=== PATIENT | male | born 1995 | race Caucasian/White ===

== ENCOUNTER 2018-06-23 02:06 | Emergency (ER) | payer OTHER ==
[2018-06-23 05:25] LABS: ABSOLUTE LYMPHOCYTES (AUTO) 1.4 10^3/uL (0.5-4.7); ABSOLUTE MONOCYTES (AUTO) 0.2 10^3/uL (0.1-1.4); ABSOLUTE NEUT (AUTO) 4.2 10^3/uL (1.7-8.2); BASOPHILS % (AUTO) 0.7 % (0-2); EOSINOPHILS % (AUTO) 0.4 % (0-6); HEMATOCRIT 43.1 % (37.9-51.0); HEMOGLOBIN 15.3 g/dL (13.5-17.0); LYMPHOCYTES % (AUTO) 24.1 % (13-45); MEAN CORPUSCULAR HEMOGLOBIN 32.1 pg (27.0-33.4); MEAN CORPUSCULAR HGB CONC 35.5 g/dL (32.0-36.0); MEAN CORPUSCULAR VOLUME 91 fl (80-97); MONOCYTES % (AUTO) 3.7 % (3-13); PLATELET COUNT 228 10^3/uL (150-450); RED BLOOD COUNT 4.76 10^6/uL (4.35-5.55); RED CELL DISTRIBUTION WIDTH 13.3 % (11.5-14.0); SEGMENTED NEUTROPHILS % (AUTO) 71.1 % (42-78); TOTAL CELLS COUNTED % (AUTO) 100 %; WHITE BLOOD COUNT 5.9 10^3/uL (4.0-10.5)
[2018-06-23 05:33] LABS: ALANINE AMINOTRANSFERASE 24 U/L (21-72); ALBUMIN 4.8 g/dL (3.5-5.0); ALKALINE PHOSPHATASE 56 U/L (38-126); ASPARTATE AMINO TRANSFERASE 21 U/L (17-59); BILIRUBIN,DIRECT 0.3 mg/dL (0.0-0.4); BILIRUBIN,TOTAL 0.7 mg/dL (0.2-1.3); BLOOD UREA NITROGEN 10 mg/dL (7-20); CALCIUM 9.4 mg/dL (8.4-10.2); CHLORIDE 110 mmol/L (98-107); GLUCOSE 93 mg/dL (75-110); LIPASE 35.1 U/L (23-300); POTASSIUM 4.4 mmol/L (3.6-5.0); TOTAL PROTEIN 7.6 g/dL (6.3-8.2)
[2018-06-23] MEDS ORDERED: MORPHINE SULFATE 10 MG/ML INJ IV ONE (05:36)
[2018-06-23] MEDS ORDERED: ONDANSETRON HCL INJ/PF 4 MG/2 ML SDV IV ONE (05:36)
[2018-06-23] MEDS ORDERED: NORMAL SALINE 1000 ML 1,000 ML IV ONE ×2 (05:36→07:27)
[2018-06-23 05:38] LABS: ANION GAP 17 (5-19); CARBON DIOXIDE 21 mmol/L (22-30); SODIUM 148.3 mmol/L (137-145)
[2018-06-23 06:13] LABS: APPEARANCE,URINE CLEAR; BILIRUBIN,URINE NEGATIVE (NEGATIVE); COLOR,URINE STRAW; GLUCOSE, URINE NEGATIVE (NEGATIVE); KETONES,URINE NEGATIVE (NEGATIVE); LEUKOCYTE ESTERASE,URINE NEGATIVE (NEGATIVE); NITRITE,URINE NEGATIVE (NEGATIVE); PROTEIN,URINE NEGATIVE (NEGATIVE); URINE SPECIFIC GRAVITY 1.002; UROBILINOGEN,URINE NEGATIVE mg/dL (<2.0)
--- NOTE | 2018-06-23 07:43 | ER Document Report ---
ED General - General Mode of Arrival: Ambulatory Information source: Patient TRAVEL OUTSIDE OF THE [place] IN LAST 30 DAYS: No <MARICRUZ BOSE - Last Filed: 06/23/18 08:05> <ADOLFO HARVEY - Last Filed: 06/23/18 09:04> - General Chief Complaint: Abdominal Pain Stated Complaint: ABDOMINAL PAIN Time Seen by Provider: 06/23/18 04:15 Notes: Patient is a 23-year-old male who presents with chief complaint of abdominal pain. Patient reports the pain is located in his mid to upper abdomen, feels like sharp stabbing pain. Patient reports associated nausea, diarrhea and vomiting. (MARICRUZ BOSE) - Related Data Allergies/Adverse Reactions: No Known Allergies Allergy (Unverified 08/08/15 08:20) Past Medical History - General Information source: Patient - Social History Smoking Status: Current Every Day Smoker Frequency of alcohol use: Heavy Drug Abuse: Marijuana Family History: Reviewed & Not Pertinent Patient has suicidal ideation: No Patient has homicidal ideation: No Renal/ Medical History: Denies: Hx Peritoneal Dialysis GI Medical History: Reports: Hx Colonoscopy, Hx Endoscopy Surgical Hx: Negative - Immunizations Hx Diphtheria, Pertussis, Tetanus Vaccination: Yes <MARICRUZ BOSE - Last Filed: 06/23/18 08:05> - Social History Smoking Status: Current Every Day Smoker Smoking Education Provided: Yes <ADOLFO HARVEY - Last Filed: 06/23/18 09:04> Review of Systems - Review of Systems Constitutional: No symptoms reported EENT: No symptoms reported Cardiovascular: No symptoms reported Respiratory: No symptoms reported Gastrointestinal: See HPI Genitourinary: No symptoms reported Male Genitourinary: No symptoms reported Musculoskeletal: No symptoms reported Skin: No symptoms reported Hematologic/Lymphatic: No symptoms reported Neurological/Psychological: No symptoms reported <MARICRUZ BOSE - Last Filed: 06/23/18 08:05> Physical Exam <MARICRUZ BOSE - Last Filed: 06/23/18 08:05> <ADOLFO HARVEY - Last Filed: 06/23/18 09:04> - Vital signs Vitals: Temp Pulse Resp BP Pulse Ox 98.0 F 95 18 104/63 97 06/23/18 02:14 06/23/18 02:14 06/23/18 02:14 06/23/18 02:14 06/23/18 02:14 - Notes Notes: PHYSICAL EXAMINATION: GENERAL: Well-appearing, well-nourished and in no acute distress. HEAD: Atraumatic, normocephalic. EYES: Pupils equal round and reactive to light, extraocular movements intact, sclera anicteric, conjunctiva are normal. ENT: Nares patent, oropharynx clear without exudates. Moist mucous membranes. NECK: Normal range of motion, supple without lymphadenopathy LUNGS: Breath sounds clear to auscultation bilaterally and equal. No wheezes rales or rhonchi. HEART: Regular rate and rhythm without murmurs ABDOMEN: Soft, I did a few hours ago was on Shay nondistended abdomen. Tenderness to palpation to upper abdomen. No guarding, no rebound. No masses appreciated. Musculoskeletal: Normal range of motion, no pitting or edema. No cyanosis. NEUROLOGICAL: Cranial nerves grossly intact. Normal speech, normal gait. Normal sensory, motor exams PSYCH: Normal mood, normal affect. SKIN: Warm, Dry, normal turgor, no rashes or lesions noted. (MARICRUZ BOSE) Course - Laboratory Result Diagrams: 06/23/18 03:43 06/23/18 03:43 <MARICRUZ BOSE - Last Filed: 06/23/18 08:05> - Laboratory Result Diagrams: 06/23/18 03:43 06/23/18 03:43 <ADOLFO HARVEY - Last Filed: 06/23/18 09:04> - Re-evaluation Re-evalutation: CBC, comprehensive metabolic panel, lipase and urinalysis are all unremarkable. Patient still reports pain to the mid to upper abdomen. Patient will be handed off to [facility] Jose Luis for additional IV fluids and pain medications. Bedside report was given and patient agrees with current plan of care. (MARICRUZ BOSE) 06/23/18 09:00 Patient reports that abdominal pain has resolved after drinking the GI cocktail. Patient reports feeling much improved. Abdomen soft, no guarding. Patient presents with abdominal pain without signs of peritonitis or other life- threatening or serious etiology. Patient appears stable for discharge and has been instructed to return immediately if the symptoms worsen in any way, or in 8 -12 hours if not improved for reevaluation. The patient has been instructed to return if the symptoms worsen or change in any way. (ADOLFO HARVEY) - Vital Signs Vital signs: Temp Pulse Resp BP Pulse Ox 98.0 F 95 18 104/63 97 06/23/18 02:14 06/23/18 02:14 06/23/18 02:14 06/23/18 02:14 06/23/18 02:14 - Laboratory Laboratory results interpreted by me: 06/23/18 03:43 Sodium 148.3 H Chloride 110 H Carbon Dioxide 21 L 06/23/18 09:01 Labs- Entire Visit 06/23/18 06/23/18 06/23/18 03:43 03:43 03:43 WBC 5.9 RBC 4.76 Hgb 15.3 Hct 43.1 MCV 91 MCH 32.1 MCHC 35.5 RDW 13.3 Plt Count 228 Seg Neutrophils % 71.1 Lymphocytes % 24.1 Monocytes % 3.7 Eosinophils % 0.4 Basophils % 0.7 Absolute Neutrophils 4.2 Absolute Lymphocytes 1.4 Absolute Monocytes 0.2 Absolute Eosinophils 0.0 Absolute Basophils 0.0 Sodium 148.3 H Potassium 4.4 Chloride 110 H Carbon Dioxide 21 L Anion Gap 17 BUN 10 Creatinine 0.99 Est GFR ( Amer) > 60 Est GFR (Non-Af Amer) > 60 Glucose 93 Calcium 9.4 Total Bilirubin 0.7 Direct Bilirubin 0.3 Neonat Total Bilirubin Not Reportable Neonat Direct Bilirubin Not Reportable Neonat Indirect Bili Not Reportable AST 21 ALT 24 Alkaline Phosphatase 56 Creatine Kinase Total Protein 7.6 Albumin 4.8 Lipase 35.1 Urine Color STRAW Urine Appearance CLEAR Urine pH 5.0 Ur Specific [place] 1.002 Urine Protein NEGATIVE Urine Glucose (UA) NEGATIVE Urine Ketones NEGATIVE Urine Blood NEGATIVE Urine Nitrite NEGATIVE Urine Bilirubin NEGATIVE Urine Urobilinogen NEGATIVE Ur Leukocyte Esterase NEGATIVE Urine WBC (Auto) 0 Urine Mucus (Auto) RARE Urine Ascorbic Acid NEGATIVE 06/23/18 03:43 WBC RBC Hgb Hct MCV MCH MCHC RDW Plt Count Seg Neutrophils % Lymphocytes % Monocytes % Eosinophils % Basophils % Absolute Neutrophils Absolute Lymphocytes Absolute Monocytes Absolute Eosinophils Absolute Basophils Sodium Potassium Chloride Carbon Dioxide Anion Gap BUN Creatinine Est GFR ( Amer) Est GFR (Non-Af Amer) Glucose Calcium Total Bilirubin Direct Bilirubin Neonat Total Bilirubin Neonat Direct Bilirubin Neonat Indirect Bili AST ALT Alkaline Phosphatase Creatine Kinase 130 Total Protein Albumin Lipase Urine Color Urine Appearance Urine pH Ur Specific [place] Urine Protein Urine Glucose (UA) Urine Ketones Urine Blood Urine Nitrite Urine Bilirubin Urine Urobilinogen Ur Leukocyte Esterase Urine WBC (Auto) Urine Mucus (Auto) Urine Ascorbic Acid (JOSE LUIS,ADOLFO) Discharge <MARICRUZ BOSE - Last Filed: 06/23/18 08:05> <ADOLFO HARVEY - Last Filed: 06/23/18 09:04> - Discharge Clinical Impression: Nausea vomiting and diarrhea, Epigastric abdominal pain Condition: Stable Disposition: HOME, SELF-CARE Instructions: Gastritis ([facility]) Additional Instructions: Return immediately for any new or worsening symptoms Followup with your primary care provider, call tomorrow to make a followup appointment VOMITING: Vomiting (or nausea without vomiting) can be caused by many other different problems. It can mean that something's wrong with the stomach, such as ulcers or inflammation or the intestinal tract, such as appendicitis. But it can also be a symptom of a problem that has nothing to do with the stomach or intestines. Vomiting is common with severe headaches, earaches, tonsillitis, and kidney infections, etc. We see it with pneumonia or heart attacks. Drugs can cause nausea and vomiting. Many abdominal problems cause vomiting; for example, gallstones, kidney stones, pancreatitis, and intestinal obstruction ( blocked bowels). In most cases, curing the vomiting depends on fixing the problem that caused it. For temporary relief, we may use an anti-nausea medicine. For home use, we can prescribe suppositories, chewable pills, pills that dissolve in the mouth, or liquid anti-nausea drugs. If the vomiting seems to be caused by a problem in the stomach, acid-suppressing drugs may be prescribed as well. It's important to avoid dehydration. Sip small amounts of clear liquids ( soft drinks, tea, broth, etc) . Try to take fluids frequently even if you are vomiting to prevent dehydration. Take increasing amounts of fluid and when liquids are being consumed successfully, advance to small amounts of bland food (toast, soups, mashed potatoes, etc.) until you are able to resume a regular diet. Avoid aspirin, tobacco, and alcohol. If the vomiting worsens, if the problem that's making you vomit worsens, or if there's evidence of bleeding in the stomach (such as black, tarry stool, or bloody or black vomit), you should return immediately. Also, return if abdominal pain worsens or becomes localized to one area or you develop high fever. Call your doctor if you aren't improved in 24 hours. DIARRHEA, NON-SPECIFIC: Diarrhea means frequent, watery stools. There are many causes. Any problem that keeps the intestinal tract from absorbing water from the stool can lead to diarrhea. A sudden new diarrhea problem is usually caused by a virus, food sensitivity, toxic bacteria, or drugs. In this case, we expect the problem to go away soon. Testing is done only if you seem seriously ill from the diarrhea. If you have chronic diarrhea, or diarrhea that keeps coming back, we need to find out why. Chronic diarrhea can be due to inflammation of the bowels such as Crohn's disease or ulcerative colitis, food sensitivity such as intolerance to lactose or wheat protein, irritable bowel syndrome, and other problems. If your diarrhea is a significant problem but it's not clear why you have it, we' ll refer you to a specialist for further testing. During an episode of diarrhea, drink small amounts (two to six ounces) of clear liquids (soft drinks, sport drinks, herb teas, broth, etc). Take fluids frequently to prevent dehydration. It's usually not a problem to take mild anti- diarrhea medication such as Kaopectate or Pepto-Bismol. As the diarrhea eases, advance to small amounts of bland food (mashed potato, toast) for 24 hours. Call the physician if blood appears in your vomit or stool, if vomiting lasts longer than 24 hours, if the abdominal pain worsens or becomes localized to one area, if you develop high fever, or if you become lightheaded and weak. VIRAL SYNDROME: The physician has diagnosed a viral infection. Viruses not only cause "colds," but can cause many different symptoms including generalized aching, fever, headache, cough, diarrhea, nausea, vomiting, and fatigue. The treatment, for the most part, is simply relief of symptoms. This means that antibiotics are usually not given. Rest, fluids, pain medications and, occasionally, medication for the specific symptoms that are most bothersome will be prescribed. Use good handwashing to avoid passing the virus to others. Shared toys should be cleaned with disinfectant. Clean the toilets, sinks, and counter surfaces in bathrooms. Launder clothing in hot water. Contact the physician if you develop any new or unusual symptoms such as severe headache, stiff neck, high fever, chest pain, productive cough, or shortness of breath. You should be rechecked if you don't see marked improvement within seven to 10 days. INTRAVENOUS (I V) FLUIDS: As part of your care today, you received intravenous (IV) fluids. IV fluids are administered to patients who are dehydrated or to those who have certain chemical (electrolyte) abnormalities that need correcting. ANTINAUSEA MEDICATION: You have been given a medication to suppress nausea and vomiting. This type of medication can be given as a shot, pill, or suppository. It will usually last for many hours. Pills and shots usually last six to eight hours. For the typical illness, only one or two doses of the medication may be necessary. Mild lightheadedness may occur. This type of medicine can cause drowsiness. Do not drive or operate dangerous machinery while under its influence. Do not mix with alcohol. See your doctor at once if you have muscle spasms or tightness, or uncontrollable motions (particularly of the neck, mouth, or jaw). Persistent vomiting or severe lightheadedness should also be evaluated by the physician. FOLLOW-UP CARE: If you have been referred to a physician for follow-up care, call the physician s office for an appointment as you were instructed or within the next two days. If you experience worsening or a significant change in your symptoms, notify the physician immediately or return to the Emergency Department at any time for re-evaluation. Prescriptions: Omeprazole Magnesium [Prilosec Otc] 20 mg PO DAILY #15 tablet. Promethazine HCl [Phenergan 25 mg Tablet] 25 mg PO Q6H PRN #12 tablet PRN Reason: Sucralfate [Carafate 1 gm Tablet] 1 gm PO ACHS #40 tablet Forms: Smoking Cessation Education, Return to Work Referrals: [facility] [Provider Group] - Follow up as needed
[2018-06-23] MEDS ORDERED: MAG HYDROX/AL HYDROX/SIMETH SUSP 30 ML UDCUP PO ONE (08:34)
[2018-06-23] MEDS ORDERED: LIDOCAINE 2% VISCOUS SOLN 20 ML UDCUP PO ONE (08:34)
[2018-06-23 09:32] VITALS: BP 96/60
== END 2018-06-23 09:32 | disposition home or self-care (01) ==
LOC: ER 02:06
DX: R10.13 Epigastric pain (principal); R11.2 Nausea with vomiting, unspecified; R19.7 Diarrhea, unspecified; F17.200 Nicotine dependence, unspecified, uncomplicated; F12.10 Cannabis abuse, uncomplicated
CPT/HCPCS: 99284; 96361; 96374; 96375; 36415; 82550; 83690; 85025; 80053; 81001; J3490; J2270; J2405; J7030

== ENCOUNTER 2018-10-13 01:43 | Emergency (ER) | payer OTHER ==
[2018-10-13] MEDS ORDERED: LIDOCAINE 1%/EPINEPHRINE INJ 20 ML VIAL INJ ONE (02:26)
[2018-10-13] MEDS ORDERED: DIPH/PERTUSS(ACELL)/TETANUS VAC/PF 0.5 ML SYR (>=10YO) IM ONE (02:26)
[2018-10-13] MEDS ORDERED: LIDOCAINE 1%/EPINEPHRINE INJ 20 ML VIAL ONE (02:26)
--- NOTE | 2018-10-13 02:32 | ER Document Report ---
ED General - General Chief Complaint: Arm Injury Stated Complaint: ARM INJURY Time Seen by Provider: 10/13/18 02:11 Notes: Patient is a 23-year-old male without chronic medical problems who presents with a 7 cm laceration to his left mid forearm that he sustained his arm a laceration after accidentally grazing his arm a cross a piece of sheet metal just prior to arrival. He complains of a severe, throbbing, aching pain to the area. Nothing improves or worsens the pain. No history of similar injuries in the past. He is right-hand dominant. He denies any additional injuries today. His tetanus is not currently up-to-date. Denies any focal weakness or numbness. No pallor or discoloration of his hand. TRAVEL OUTSIDE OF THE [place] IN LAST 30 DAYS: No - Related Data Allergies/Adverse Reactions: No Known Allergies Allergy (Unverified 08/08/15 08:20) Past Medical History - General Information source: Patient - Social History Smoking Status: Never Smoker Frequency of alcohol use: None Drug Abuse: None Lives with: Spouse/Significant other Family History: Reviewed & Not Pertinent Patient has suicidal ideation: No Patient has homicidal ideation: No Renal/ Medical History: Denies: Hx Peritoneal Dialysis GI Medical History: Reports: Hx Colonoscopy, Hx Endoscopy - Immunizations Hx Diphtheria, Pertussis, Tetanus Vaccination: Yes Review of Systems - Review of Systems Notes: Constitutional: Negative for fever. Eyes: Negative for visual changes. ENT: Negative for facial injury Cardiovascular: Negative for chest injury. Respiratory: Negative for shortness of breath. Gastrointestinal: Negative for abdominal injury. Genitourinary: Negative for genital injury Musculoskeletal: Negative for back injury. Skin: Positive for laceration/abrasions. Neurological: Negative for head injury. Physical Exam - Vital signs Vitals: Temp Pulse Resp BP Pulse Ox 98.3 F 102 H 18 127/68 H 97 10/13/18 01:49 10/13/18 01:49 10/13/18 01:49 10/13/18 01:49 10/13/18 01:49 Interpretation: Tachycardic - Resolved at the time of my assessment Notes: PHYSICAL EXAMINATION: GENERAL: Appears to be moderately uncomfortable but in no acute distress HEAD: Atraumatic, normocephalic. EYES: sclera anicteric, conjunctiva are normal. ENT: Moist mucous membranes. NECK: Normal range of motion LUNGS: Normal work of breathing HEART: 2+ radial pulses bilaterally EXTREMITIES: no pitting or edema. No cyanosis. NEUROLOGICAL: No focal neurological deficits. Moves all extremities spontaneously and on command. RMU motor and sensory distribution is normal including against resistance on motor testing PSYCH: Normal mood, normal affect. SKIN: Warm, Dry, normal turgor, there is a 7 cm laceration to the left mid forearm with exposure of the subcutaneous fat Course - Re-evaluation Re-evalutation: 10/13/18 02:35 Presentation of uncomplicated 7 cm laceration to the left mid forearm without any evidence of neurovascular injury or retained foreign body on exam. The wound was cleaned, irrigated and closed with a running stitch. Patient tolerated the procedure well. Tetanus has been updated. At this time will discharge with return precautions and follow-up recommendations. Verbal discharge instructions given a the bedside and opportunity for questions given. Medication warnings reviewed. Patient is in agreement with this plan and has verbalized understanding of return precautions and the need for primary care follow-up in the next 1 week. - Vital Signs Vital signs: Temp Pulse Resp BP Pulse Ox 98.3 F 102 H 18 127/68 H 97 10/13/18 01:49 10/13/18 01:49 10/13/18 01:49 10/13/18 01:49 10/13/18 01:49 Procedures - Laceration/Wound Repair Left Arm Wound length (cm): 7 Wound's Depth, Shape: Superficial Laceration pre-procedure: Sterile PPE donned Anesthetic type: 1% Lidocaine w/epi Volume Anesthetic (mLs): 5 Wound explored: Clean Irrigated w/ Saline (mLs): 500 Wound Debrided: Minimal Wound Repaired With: Sutures Suture Size/Type: 4:0, Prolene Number of Sutures: 7 Layer Closure?: No Post-procedure wound care: Sterile dressing applied Post-procedure NV exam normal: Yes Complications: Yes Notes: 10/13/18 03:27 The patient did develop a brisk venous bleed from the lateral aspect of the wound during repair after infiltration with lidocaine and epinephrine. This was addressed by instillation of TXA and direct pressure to the area. This did not immediately resolve the bleeding and the suture repair was completed without further comp location. No formation of hematoma thereafter. Discharge - Discharge Clinical Impression: Laceration of left upper arm Qualifiers: Encounter type: initial encounter Qualified Code(s): S41.112A - Laceration without foreign body of left upper arm, initial encounter Condition: Good Disposition: HOME, SELF-CARE Additional Instructions: Please return to your primary doctor, the ED, or an urgent care in 7 days for suture removal. Return immediately if you develop spreading redness around the wound, pus from the wound, worsening pain, or a fever of >100.4. Keep the area clean and dry. Wash gently with soap and water twice daily and cover with antibiotic ointment. Referrals: [facility] [Primary Care Provider] - Follow up as needed
[2018-10-13] MEDS ORDERED: TRANEXAMIC ACID INJ/PF 1,000 MG/10 ML SDV IV ONE ×2 (02:48→02:49)
[2018-10-13 03:29] VITALS: BP 122/62
== END 2018-10-13 03:20 | disposition home or self-care (01) ==
LOC: ER 01:43
DX: S51.812A Laceration without foreign body of left forearm, initial encounter (principal); W26.8XXA Contact with other sharp object(s), not elsewhere classified, initial encounter; Y93.89 Activity, other specified; Z23 Encounter for immunization
CPT/HCPCS: 12002; 99283; 90471; 96374; 90715; J3490

== ENCOUNTER 2018-10-28 15:08 | Emergency (ER) | payer OTHER ==
[2018-10-28 15:56] VITALS: BP 135/59
--- NOTE | 2018-10-28 16:49 | ER Document Report ---
HPI - HPI Patient complains to provider of: Suture removal Time Seen by Provider: 10/28/18 16:45 Onset/Duration: Better Quality of pain: No pain Pain Level: Denies Context: Patient had sutures placed 15 days ago to left forearm. Patient denies any problems with the injury. Patient states his tetanus was updated. Associated Symptoms: Other - Sutured laceration to left forearm Exacerbated by: Denies Relieved by: Denies Similar symptoms previously: No Recently seen / treated by doctor: Yes - ROS ROS below otherwise negative: Yes Systems Reviewed and Negative: Yes All other systems reviewed and negative - CONSTITUTIONAL Constitutional: DENIES: Fever, Chills - NEURO Neurology: DENIES: Weakness - GASTROINTESTINAL Gastrointestinal: DENIES: Nausea - DERM Skin Color: Normal Skin Problems: Laceration Past Medical History - General Information source: Patient - Social History Smoking Status: Former Smoker Frequency of alcohol use: Rare Drug Abuse: None Family History: Reviewed & Not Pertinent Patient has suicidal ideation: No Patient has homicidal ideation: No - Medical History Medical History: Negative Renal/ Medical History: Denies: Hx Peritoneal Dialysis GI Medical History: Reports: Hx Colonoscopy, Hx Endoscopy Past Surgical History: Reports: Other - Bleb to lung - Immunizations Hx Diphtheria, Pertussis, Tetanus Vaccination: Yes Vertical Provider Document - CONSTITUTIONAL Agree With Documented VS: Yes Exam Limitations: No Limitations General Appearance: WD/WN, No Apparent Distress - INFECTION CONTROL TRAVEL OUTSIDE OF THE [place] IN LAST 30 DAYS: No - HEENT HEENT: Atraumatic, Normocephalic - NECK Neck: Normal Inspection - RESPIRATORY Respiratory: No Respiratory Distress - CARDIOVASCULAR Pulses: Normal: Radial - BACK Back: Normal Inspection - MUSCULOSKELETAL/EXTREMETIES Musculoskeletal/Extremeties: PAOLA COONEY - NEURO Level of Consciousness: Awake, Alert, Appropriate Motor/Sensory: No Motor Deficit - DERM Integumentary: Warm, Dry, Laceration - Sutured 7 cm laceration to the volar aspect of left forearm with 7 intact sutures, wound edges approximated, no erythema, no drainage. Course - Vital Signs Vital signs: Temp Pulse Resp BP Pulse Ox 98.4 F 84 16 135/59 H 99 10/28/18 15:44 10/28/18 15:44 10/28/18 15:44 10/28/18 15:44 10/28/18 15:44 Discharge - Discharge Clinical Impression: Visit for suture removal Condition: Stable Disposition: HOME, SELF-CARE Instructions: Suture Removal Additional Instructions: Return immediately for any new or worsening symptoms Followup with your primary care provider as needed Referrals: [facility] [Primary Care Provider] - Follow up as needed
== END 2018-10-28 16:48 | disposition home or self-care (01) ==
LOC: ER 15:08
DX: S51.812D Laceration without foreign body of left forearm, subsequent encounter (principal); T14.8XXD Other injury of unspecified body region, subsequent encounter

== ENCOUNTER 2019-06-28 18:22 | Emergency (ER) | payer OTHER, BC ==
[2019-06-28] MEDS ORDERED: ONDANSETRON 4 MG TAB.RAPDIS PO ONE (19:41)
--- NOTE | 2019-06-28 19:42 | ER Document Report ---
Addendum entered and electronically signed by ADOLFO HARVEY NP 06/28/19 20:08: Course - Re-evaluation Re-evalutation: 06/28/19 20:[address] Colvin to review patient's imaging while we wait for radiologist report, no obvious pneumothorax at this time. - Vital Signs Vital signs: Temp Pulse Resp BP Pulse Ox 98.2 F 58 L 16 117/60 98 06/28/19 18:33 06/28/19 18:33 06/28/19 18:33 06/28/19 18:33 06/28/19 18:33 Original Note: ED Medical Screen (RME) - General Chief Complaint: Shortness Of Breath Stated Complaint: CHEST PAIN Time Seen by Provider: 06/28/19 19:40 Primary Care Provider: [facility] [Primary Care Provider] - Follow up as needed Information source: Patient Notes: Patient presents complaining of left-sided chest pain that radiates through to his back that started suddenly at 430 this afternoon while he was driving. Patient complains of chest pain difficulty breathing nausea and dizziness. Patient has a history of spontaneous pneumothorax on this left side and is concerned about this today. I have greeted and performed a rapid initial assessment of this patient. A comprehensive ED assessment and evaluation of the patient, analysis of test results and completion of the medical decision making process will be conducted by additional ED providers. TRAVEL OUTSIDE OF THE [place] IN LAST 30 DAYS: No - Related Data Allergies/Adverse Reactions: No Known Allergies Allergy (Verified 06/28/19 18:25) Past Medical History Renal/ Medical History: Denies: Hx Peritoneal Dialysis GI Medical History: Reports: Hx Colonoscopy, Hx Endoscopy Past Surgical History: Reports: Other - Bleb to lung - Immunizations Hx Diphtheria, Pertussis, Tetanus Vaccination: Yes Physical Exam - Vital signs Vitals: Temp Pulse Resp BP Pulse Ox 98.2 F 58 L 16 117/60 98 06/28/19 18:33 06/28/19 18:33 06/28/19 18:33 06/28/19 18:33 06/28/19 18:33 - General General appearance: Alert, Anxious - Respiratory Respiratory status: No respiratory distress Chest status: Pain with deep breathing Breath sounds: Normal. No: Decreased air movement Course - Vital Signs Vital signs: Temp Pulse Resp BP Pulse Ox 98.2 F 58 L 16 117/60 98 06/28/19 18:33 06/28/19 18:33 06/28/19 18:33 06/28/19 18:33 06/28/19 18:33 Doctor's Discharge - Discharge Referrals: [facility] [Primary Care [facility]] - Follow up as needed
--- NOTE | 2019-06-28 20:31 | RADIOLOGY REPORT (SQ) ---
EXAM DESCRIPTION: CLINICAL HISTORY: 24 years Male, L side cp, hx spontaneous pneumothorax COMPARISON: Chest x-ray 08/22/2015. FINDINGS: Cardiomediastinal silhouette is normal. Mild hyperinflation. Minimal scarring left lung apex medially. No acute lung pleural abnormalities. IMPRESSION: Hyperinflation without acute findings.
[2019-06-28 20:36] LABS: ABSOLUTE EOSINOPHILS # (AUTO) 0.1 10^3/uL (0.0-0.6); ABSOLUTE LYMPHOCYTES (AUTO) 2.2 10^3/uL (0.5-4.7); ABSOLUTE MONOCYTES (AUTO) 0.4 10^3/uL (0.1-1.4); BASOPHILS % (AUTO) 0.5 % (0-2); EOSINOPHILS % (AUTO) 1.1 % (0-6); HEMATOCRIT 44.3 % (37.9-51.0); HEMOGLOBIN 15.5 g/dL (13.5-17.0); LYMPHOCYTES % (AUTO) 28.8 % (13-45); MEAN CORPUSCULAR HEMOGLOBIN 31.3 pg (27.0-33.4); MEAN CORPUSCULAR HGB CONC 34.9 g/dL (32.0-36.0); MEAN CORPUSCULAR VOLUME 90 fl (80-97); MONOCYTES % (AUTO) 5.6 % (3-13); PLATELET COUNT 199 10^3/uL (150-450); RED BLOOD COUNT 4.94 10^6/uL (4.35-5.55); RED CELL DISTRIBUTION WIDTH 13.2 % (11.5-14.0); TOTAL CELLS COUNTED % (AUTO) 100 %; WHITE BLOOD COUNT 7.8 10^3/uL (4.0-10.5)
[2019-06-28 20:55] LABS: ALBUMIN 4.9 g/dL (3.5-5.0); ALKALINE PHOSPHATASE 50 U/L (38-126); ANION GAP 11 (5-19); ASPARTATE AMINO TRANSFERASE 23 U/L (17-59); BILIRUBIN,DIRECT 0.2 mg/dL (0.0-0.4); BLOOD UREA NITROGEN 14 mg/dL (7-20); CALCIUM 9.8 mg/dL (8.4-10.2); CARBON DIOXIDE 27 mmol/L (22-30); CHLORIDE 102 mmol/L (98-107); GLUCOSE 94 mg/dL (75-110); POTASSIUM 3.7 mmol/L (3.6-5.0); TOTAL PROTEIN 7.6 g/dL (6.3-8.2)
[2019-06-29] MEDS ORDERED: FENTANYL CITRATE INJ/PF 100 MCG/2 ML AMPUL IV ONE (00:51)
--- NOTE | 2019-06-29 00:53 | ER Document Report ---
ED General - General Chief Complaint: Shortness Of Breath Stated Complaint: CHEST PAIN Time Seen by Provider: 06/28/19 19:40 Primary Care Provider: ANILA COCHRAN MD [ACTIVE STAFF] - Follow up as needed ROBINSON WALKER MD [ACTIVE STAFF] - Follow up as needed [facility] [NO LOCAL MD] - Follow up in 1 week Mode of Arrival: Ambulatory Information source: Patient Notes: This 24-year-old male presents emergency department with complaints of sudden onset left side chest pain. Patient reports he was driving when he started having the chest pain. Reports it radiates up to his left shoulder. Reports history of spontaneous pneumothorax. Reports it hurts when he coughs or takes a deep breath. Reports his chest wall is slightly tender to palpate. No complaints of nausea vomiting diarrhea. Denies trauma. Denies recent heavy lifting. Reports he does lift items at work but nothing unusual. 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 He has been up in the ceiling recently which caused him to cough for the last couple days. TRAVEL OUTSIDE OF THE [place] IN LAST 30 DAYS: No - HPI Onset/Duration: Sudden Quality of pain: Sharp Severity: Severe Pain Level: 5 Associated symptoms: None Exacerbated by: Coughing, Deep breathing Relieved by: Denies Similar symptoms previously: Yes Recently seen / treated by doctor: No - Related Data Allergies/Adverse Reactions: No Known Allergies Allergy (Verified 06/28/19 18:25) Past Medical History - General Information source: Patient - Social History Smoking Status: Former Smoker Chew tobacco use (# tins/day): No Frequency of alcohol use: Rare Drug Abuse: Marijuana Occupation: fixes restaurant equipment Lives with: Family Family History: Reviewed & Not Pertinent Patient has suicidal ideation: No Patient has homicidal ideation: No Pulmonary Medical History: Reports: Other - pneumothorax Renal/ Medical History: Denies: Hx Peritoneal Dialysis GI Medical History: Reports: Hx Colonoscopy, Hx Endoscopy Past Surgical History: Reports: Other - Bleb to lung - Immunizations Hx Diphtheria, Pertussis, Tetanus Vaccination: Yes Review of Systems - Review of Systems Notes: Review HPI for review of systems., All other systems negative Physical Exam - Vital signs Vitals: Temp Pulse Resp BP Pulse Ox 98.2 F 58 L 16 117/60 98 06/28/19 18:33 06/28/19 18:33 06/28/19 18:33 06/28/19 18:33 06/28/19 18:33 - General General appearance: Alert, Anxious In distress: None - HEENT Head: Normocephalic, Atraumatic Eyes: Normal Conjunctiva: Normal Pharynx: Normal Neck: Normal, Supple. No: Lymphadenopathy - Respiratory Respiratory status: No respiratory distress Chest status: Tender Breath sounds: Normal Chest palpation: Normal. No: Flail segment - Cardiovascular Rhythm: Regular, Bradycardia Heart sounds: Normal auscultation Murmur: No - Abdominal Inspection: Normal Distension: No distension Bowel sounds: Normal Tenderness: Nontender Organomegaly: No organomegaly - Back Back: Normal, Nontender - Extremities General upper extremity: Normal ROM General lower extremity: Normal ROM, Normal weight bearing - Neurological Neuro grossly intact: Yes Cognition: Normal Orientation: AAOx4 Deena Coma Scale Eye Opening: Spontaneous [place] Coma Scale Verbal: Oriented Deena Coma Scale Motor: Obeys Commands [place] Coma Scale Total: 15 Speech: Normal Sensory: Normal - Psychological Associated symptoms: Normal affect, Normal mood - Skin Skin Temperature: Warm Skin Moisture: Dry Skin Color: Normal Course - Re-evaluation Re-evalutation: 06/29/19 02:11 24-year-old male presents the emergency department with complaints of left-sided chest pain. Reports history of spontaneous pneumothorax. Denies trauma. Denies recent cold symptoms denies coughing fever vomiting diarrhea. 06/29/19 02:12 Patient reports pain has decreased. Labs unremarkable. Presentation of chest pain in an otherwise well-appearing patient. Low clinical suspicion for ACS given the clinical history, exam, EKG without ST elevation or depressions, and negative troponin x 2. Heart score less than or equal to 3. PE also seems unlikely given the clinical history, absence of tachycardia or dyspnea. Patient's PERC criteria is negative. Chest x-ray & CT chest without evidence of pneumothorax or pneumonia. No widened mediastinum. Inferior diss ection also seems unlikely given history, symmetric pulses, chest x-ray and vitals. Given the reassuring evaluation, will plan for discharge home at this time with return precautions and follow-up recommendations. Patient has been instructed to return if symptoms worsen or change in any way. CT of the chest shows bronchiectasis emphysema. I consulted Dr Mota who advised steroids, torodol. Patient Instructed on ct results and plan of care. Patient reports he has been coughing for the last couple days because he works fixing restaurant equipment and he was recently up in a ceiling. Patient reports he does smoke marijuana. He was advised to quit smoking. He was advised to follow-up with the spray drier usual chest pain return precautions reviewed. Patient verbalized understanding. Dictation of this chart was performed using voice recognition software; therefore, there may be some unintended grammatical errors. Chest X-Ray 06/28/19 19:40 IMPRESSION: Hyperinflation without acute findings. Chest CT 06/29/19 00:51 IMPRESSION: Mild emphysema. Mild left basilar bronchiectasis. TECHNICAL DOCUMENTATION: Quality ID # 436: Final reports with documentation of one or more dose reduction techniques (e.g., Automated exposure control, adjustment of the mA and/or kV according to patient size, use of iterative reconstruction technique) copyright 2011 [employer]- All Rights Reserved 06/28/19 20:24 06/28/19 20:24 MCV 90 fl (80-97) 06/28/19 20:24 MCH 31.3 pg (27.0-33.4) 06/28/19 20:24 MCHC 34.9 g/dL (32.0-36.0) 06/28/19 20:24 RDW 13.2 % (11.5-14.0) 06/28/19 20:24 Seg Neutrophils % 64.0 % (42-78) 06/28/19 20:24 Lymphocytes % 28.8 % (13-45) 06/28/19 20:24 Monocytes % 5.6 % (3-13) 06/28/19 20:24 Eosinophils % 1.1 % (0-6) 06/28/19 20:24 Basophils % 0.5 % (0-2) 06/28/19 20:24 Absolute Neutrophils 5.0 10^3/uL (1.7-8.2) 06/28/19 20:24 Absolute Lymphocytes 2.2 10^3/uL (0.5-4.7) 06/28/19 20:24 Absolute Monocytes 0.4 10^3/uL (0.1-1.4) 06/28/19 20:24 Absolute Eosinophils 0.1 10^3/uL (0.0-0.6) 06/28/19 20:24 Absolute Basophils 0.0 10^3/uL (0.0-0.2) 06/28/19 20:24 Chloride 102 mmol/L (98-107) 06/28/19 20:24 Carbon Dioxide 27 mmol/L (22-30) 06/28/19 20:24 Anion Gap 11 (5-19) 06/28/19 20:24 Est GFR ( Amer) > 60 (>60) 06/28/19 20:24 Est GFR (Non-Af Amer) > 60 (>60) 06/28/19 20:24 Glucose 94 mg/dL (75-110) 06/28/19 20:24 Calcium 9.8 mg/dL (8.4-10.2) 06/28/19 20:24 Total Bilirubin 1.0 mg/dL (0.2-1.3) 06/28/19 20:24 AST 23 U/L (17-59) 06/28/19 20:24 Alkaline Phosphatase 50 U/L (38-126) 06/28/19 20:24 Total Protein 7.6 g/dL (6.3-8.2) 06/28/19 20:24 Albumin 4.9 g/dL (3.5-5.0) 06/28/19 20:24 06/28/19 06/29/19 20:24 01:10 Troponin I < 0.012 < 0.012 - Vital Signs Vital signs: Temp Pulse Resp BP Pulse Ox 97.7 F 44 L 13 137/84 H 94 06/29/19 00:24 06/29/19 00:24 06/29/19 03:01 06/29/19 03:01 06/29/19 03:01 - Laboratory Result Diagrams: 06/28/19 20:24 06/28/19 20:24 - Diagnostic Test Radiology reviewed: Image reviewed, Reports reviewed - EKG Interpretation by Me EKG shows normal: Sinus rhythm Rate: Normal Rhythm: NSR Additional EKG results interpreted by me: 06/29/19 08:[address] elevation no T wave inversion Discharge - Discharge Clinical Impression: Chest pain Qualifiers: Chest pain type: unspecified Qualified Code(s): R07.9 - Chest pain, unspecified Bronchiectasis Qualifiers: Bronchiectasis type: uncomplicated Qualified Code(s): J47.9 - Bronchiectasis, uncomplicated Emphysema of lung Qualifiers: Emphysema type: unspecified Qualified Code(s): J43.9 - Emphysema, unspecified Condition: Stable Disposition: HOME, SELF-CARE Instructions: Chest Pain of Unclear Cause ([facility]), Steroid Medication Injection, Toradol Injection ([facility]) Additional Instructions: *You have been evaluated for chest pain, bronchiectasis, emphysema *Take motrin as indicated, cough and deep breathe frequently *Quit smoking *Follow up with a primary care provider within one week for referral to a spray drier *Follow-up with the spray drier for evaluation *Return to ED for worsening condition, changes, needs *Return to ED if not better in 24 hours Forms: Return to Work Referrals: [facility] [NO [facility]AL MD] - Follow up in 1 week ANILA COCHRAN MD [ACTIVE STAFF] - Follow up as needed ROBINSON WALKER MD [ACTIVE STAFF] - Follow up as needed
--- NOTE | 2019-06-29 02:12 | RADIOLOGY REPORT (SQ) ---
EXAM DESCRIPTION: CT CHEST WITH IV CONTRAST COMPLETED DATE/TME: 06/29/2019 00:51 CLINICAL HISTORY: 24 years, Male, CHEST PAIN COMPARISON: CT chest 08/22/2015 TECHNIQUE: Axial images of the chest were performed utilizing intravenous contrast, with sagittal and coronal reformatted images. Images stored on PACS. All CT scanners at this facility use dose modulation, iterative reconstruction, and/or weight based dosing when appropriate to reduce radiation dose to as low as reasonably achievable (ALARA). [facility]: Dose Right [facility]: CareDose [facility]: Dose Right [facility]: Teradose 4D [facility]: Smart [place] LIMITATIONS: None. FINDINGS: There is mild emphysema. There is mild bronchiectasis at the left lung base, a finding that was also on the prior scan. No evidence of acute pulmonary infiltrate or pleural effusion. No evidence of pulmonary embolus. No evidence of aortic dissection. No evidence of mediastinal or hilar adenopathy. The heart is normal in size. IMPRESSION: Mild emphysema. Mild left basilar bronchiectasis. TECHNICAL DOCUMENTATION: Quality ID # 436: Final reports with documentation of one or more dose reduction techniques (e.g., Automated exposure control, adjustment of the mA and/or kV according to patient size, use of iterative reconstruction technique) copyright 2010 [employer]- All Rights Reserved
[2019-06-29] MEDS ORDERED: METHYLPREDNISOLONE INJ 125 MG/2 ML SDV IV ONE (02:33)
[2019-06-29] MEDS ORDERED: KETOROLAC TROMETHAMINE INJ/PF 30 MG/1 ML SDV IV ONE (02:33)
[2019-06-29 03:02] VITALS: BP 137/84
--- NOTE | 2019-06-29 10:30 | EKG REPORT ---
SEVERITY:- OTHERWISE NORMAL ECG - SINUS RHYTHM ATRIAL PREMATURE COMPLEX : Confirmed by: Tiffanie Weems 29-Jun-2019 10:29:10
== END 2019-06-29 03:10 | disposition home or self-care (01) ==
LOC: ER 18:22
DX: J47.9 Bronchiectasis, uncomplicated (principal); J43.9 Emphysema, unspecified; R07.9 Chest pain, unspecified; R06.02 Shortness of breath
CPT/HCPCS: 93005; 99284; 96374; 96375; 36415; 85025; 80053; 84484; 71046; 71260; 93010; S0119; J3010; J2930; J1885

== ENCOUNTER 2020-05-21 10:32 | Emergency (ER) | payer OTHER, BC ==
[2020-05-21] MEDS ORDERED: FENTANYL CITRATE INJ/PF 100 MCG/2 ML AMPUL IV ONE (11:01)
--- NOTE | 2020-05-21 11:01 | ER Document Report ---
ED General - General Chief Complaint: Chest Pain Stated Complaint: CHEST PAIN Time Seen by Provider: 05/21/20 10:47 Primary Care Provider: CAYETANO SENIOR PA-C [Primary Care Provider] - Follow up as needed Notes: 24-year-old male with a history of spontaneous pneumothorax chest tube and VATS, former smoker current marijuana smoker presents with left-sided axillary chest pain pleuritic rating the back worse today but started yesterday with mild shortness of breath or shortness breath today. No fever no cough beyond normal. Pain is in the axilla region. Denies leg swelling hemoptysis. TRAVEL OUTSIDE OF THE [place] IN LAST 30 DAYS: No - Related Data Allergies/Adverse Reactions: No Known Allergies Allergy (Verified 05/21/20 10:46) Past Medical History - General Information source: Patient - Social History Smoking Status: Former Smoker Chew tobacco use (# tins/day): No Frequency of alcohol use: None Drug Abuse: None Family History: Reviewed & Not Pertinent Patient has homicidal ideation: No - Past Medical History Cardiac Medical History: Denies: Hx Coronary Artery Disease, Hx Heart Attack, Hx Hypertension Pulmonary Medical History: Denies: Hx Asthma, Hx Bronchitis, Hx COPD, Hx Pneumonia Neurological Medical History: Denies: Hx Cerebrovascular Accident, Hx Seizures Renal/ Medical History: Denies: Hx Peritoneal Dialysis GI Medical History: Reports: Hx Colonoscopy, Hx Endoscopy Musculoskeletal Medical History: Reports Hx Arthritis - HIPS Past Surgical History: Reports: Other - Bleb to lung - Immunizations Hx Diphtheria, Pertussis, Tetanus Vaccination: Yes Review of Systems - Review of Systems Notes: REVIEW OF SYSTEMS GEN: Denies fever, chills, weight loss ENT: Denies sore throat, nasal discharge, ear pain EYES: Denies blurry vision, eye pain, discharge CV: Chest pain RESP: Shortness of breath GI: Denies abdominal pain, nausea, vomiting, diarrhea MSK: Denies joint pain/swelling, edema, SKIN: Denies rash, skin lesions LYMPH: Denies swollen glands/lymph nodes NEURO: Denies headache, focal weakness or numbness, dizziness PSYCH: Denies depression, suicidal or homicidal ideation PHYSICAL EXAMINATION General: No acute distress, well-nourished Head: Atraumatic, normocephalic ENT: Mouth normal, oropharynx moist, no exudates or tonsillar enlargement Eyes: Conjunctiva normal, pupils equal, lids normal Neck: No JVD, supple, no guarding CVS: Normal rate, regular rhythm, no murmurs Resp: No resp distress, equal and normal breath sounds bilaterally GI: Nondistended, soft, no tenderness to palpation, no rebound or guarding Ext: No deformities, no edema, normal range of motion in upper and lower ext Back: No CVA or midline TTP Skin: No rash, warm Lymphatic: No lymphadeopathy noted Neuro: Awake, alert. Face symmetric. GCS 15. Physical Exam - Vital signs Vitals: Temp Pulse Resp BP Pulse Ox 98.5 F 50 L 18 119/56 L 99 05/21/20 10:46 05/21/20 10:46 05/21/20 10:46 05/21/20 10:46 05/21/20 10:46 Course - Re-evaluation Re-evalutation: 05/21/20 11:40 Axillary chest pain shortness of breath normal vital signs history of pneumoth orax and resultant VATS Sat normal lung sounds good EKG shows premature atrial contraction, this could be causing some discomfort. Also smokes marijuana but has no wheezing or significant lung disease on his chest x-ray. Labs normal Trope negative doubt ACS doubt dissection, doubt PE, PERC negative Patient is stable for discharge will follow up with primary care. I have discussed with the patient there likely diagnosis, aftercare plan, follow-up plans and my usual and customary return precautions. They verbalized understanding of this. - Vital Signs Vital signs: Temp Pulse Resp BP Pulse Ox 98.5 F 50 L 18 119/56 L 99 05/21/20 10:47 05/21/20 10:46 05/21/20 10:46 05/21/20 10:46 05/21/20 10:46 - Laboratory Result Diagrams: 05/21/20 10:58 05/21/20 10:58 - Diagnostic Test Radiology reviewed: Image reviewed, Reports reviewed - EKG Interpretation by Me EKG shows normal: Sinus rhythm Rate: Normal Rhythm: NSR - Premature atrial contractions conducted normally no true PVC and no ST or T wave changes When compared to previous EKG there are: Previous EKG unavailable Discharge - Discharge Clinical Impression: Premature atrial contraction, Chest wall pain Condition: Good Disposition: HOME, SELF-CARE Instructions: Anti-Inflammatory Medication ([facility]), Chest Wall Pain ([facility]) Additional Instructions: Do not find a serious cause of your symptoms. There is no collapsed lung no heart problems. Please stop smoking all substances. Please follow-up with your primary care. Referrals: CAYETANO SENIOR PA-C [Primary Care Provider] - Follow up as needed
[2020-05-21 11:17] LABS: ABSOLUTE EOSINOPHILS # (AUTO) 0.1 10^3/uL (0.0-0.6); ABSOLUTE LYMPHOCYTES (AUTO) 1.4 10^3/uL (0.5-4.7); ABSOLUTE MONOCYTES (AUTO) 0.3 10^3/uL (0.1-1.4); ABSOLUTE NEUT (AUTO) 2.8 10^3/uL (1.7-8.2); EOSINOPHILS % (AUTO) 2.3 % (0-6); HEMATOCRIT 42.3 % (37.9-51.0); HEMOGLOBIN 14.9 g/dL (13.5-17.0); LYMPHOCYTES % (AUTO) 30.6 % (13-45); MEAN CORPUSCULAR HEMOGLOBIN 31.6 pg (27.0-33.4); MEAN CORPUSCULAR HGB CONC 35.2 g/dL (32.0-36.0); MEAN CORPUSCULAR VOLUME 90 fl (80-97); MONOCYTES % (AUTO) 7.2 % (3-13); PLATELET COUNT 184 10^3/uL (150-450); RED BLOOD COUNT 4.71 10^6/uL (4.35-5.55); RED CELL DISTRIBUTION WIDTH 12.9 % (11.5-14.0); SEGMENTED NEUTROPHILS % (AUTO) 58.9 % (42-78); TOTAL CELLS COUNTED % (AUTO) 100 %; WHITE BLOOD COUNT 4.7 10^3/uL (4.0-10.5)
[2020-05-21 11:43] LABS: ANION GAP 6 (5-19); BLOOD UREA NITROGEN 15 mg/dL (7-20); CALCIUM 9.7 mg/dL (8.4-10.2); CARBON DIOXIDE 26 mmol/L (22-30); CHLORIDE 106 mmol/L (98-107); GLUCOSE 93 mg/dL (75-110); POTASSIUM 4.2 mmol/L (3.6-5.0)
--- NOTE | 2020-05-21 11:45 | RADIOLOGY REPORT (SQ) ---
EXAM DESCRIPTION: CHEST SINGLE VIEW IMAGES COMPLETED DATE/TIME: 05/21/2020 11:30 am REASON FOR STUDY: cp h/o PTX COMPARISON: Two-view chest 06/28/2019, 08/22/2015 EXAM PARAMETERS: NUMBER OF VIEWS: One view. TECHNIQUE: Single frontal radiographic view of the chest acquired. RADIATION DOSE: NA LIMITATIONS: None. FINDINGS: LUNGS AND PLEURA: No opacities, masses or pneumothorax. No pleural effusion. MEDIASTINUM AND HILAR STRUCTURES: No masses. Contour normal. HEART AND VASCULAR STRUCTURES: Heart normal in size. Normal vasculature. BONES: No acute findings. HARDWARE: None in the chest. OTHER: No other significant finding. IMPRESSION: NO ACUTE RADIOGRAPHIC FINDING IN THE CHEST. TECHNICAL DOCUMENTATION: JOB ID: [id number] 2010 [employer]- All Rights Reserved Reading location - IP/workstation name: [id number]
[2020-05-21 12:45] VITALS: BP 112/78
--- NOTE | 2020-05-21 13:13 | EKG REPORT ---
SEVERITY:- ABNORMAL ECG - SINUS RHYTHM : Confirmed by: Chato Booker MD 21-May-2020 13:12:29
== END 2020-05-21 12:58 | disposition home or self-care (01) ==
LOC: ER 10:32
DX: R07.81 Pleurodynia (principal); R07.89 Other chest pain; F12.10 Cannabis abuse, uncomplicated; Z87.891 Personal history of nicotine dependence
CPT/HCPCS: 93005; 99285; 36415; 85025; 80048; 84484; 71045; 93010; J3010

== ENCOUNTER 2020-08-18 12:17 | Emergency (ER) | payer BC, OTHER ==
[2020-08-18 12:50] VITALS: BP 107/63
[2020-08-18] MEDS ORDERED: SILVER SULFADIAZINE 1% CREAM 400 GM TP ONE (13:08)
[2020-08-18] MEDS ORDERED: HYDROCODONE/ACETAMINOPHEN 5-325 MG (6 TAB/ER DISP) PO PRN (13:11)
--- NOTE | 2020-08-18 13:14 | ER Document Report ---
HPI - HPI Time Seen by Provider: 08/18/20 13:03 Notes: 25-year-old male presents emergency room today for evaluation of his left volar aspect of his third finger that he accidentally touched to a acetylene and oxygen torch while at work approximately an hour ago. 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 Denies any other area of injury. States his tetanus was given approximately 3 years ago. Soaked affected finger in cold water immediately. Burn is only to the volar aspect of the left third phalanges. Reports pain is 3 out of 5, is not tried any [id number] pain medication. Able to bend his fingers without any issues. Denies fevers, chills, chest pain,palpitations, shortness of breath, dyspnea, nausea, vomiting, diarrhea, abdominal pain, hematuria,blurred vision, double vision, loss of vision, speech changes, LH, dizziness, syncope, headaches, wheezing, ST, URI, neck pain, weakness, bowel or bladder dysfunction, saddle anesthesia, numbness or tingling in bilateral upper or lower extremities equally, muscle paralysis, weakness in bilateral upper or lower extremities equally or rash. MEDICATIONS: I agree with the patient medications as charted by the RN. ALLERGIES: I agree with the allergies as charted by the RN. PAST MEDICAL HISTORY/PAST SURGICAL HISTORY: Reviewed and agree as charted by RN. SOCIAL HISTORY: Reviewed and agree as charted by RN. FAMILY HISTORY: No significant familial comorbid conditions directly related to patient complaint EXAM: Reviewed vital signs as charted by RN. REVIEW OF SYSTEMS:reviewed vital signs by RN CONSTITUTIONAL : Denies fever, chills, or sweats. Denies recent illness. EENT: Denies eye, ear, throat, or mouth pain or symptoms. Denies nasal or sinus congestion or discharge. Denies throat, tongue, or mouth swelling or difficulty swallowing. CARDIOVASCULAR: Denies chest pain. Denies palpitations or racing or irregular heart beat. Denies ankle edema. RESPIRATORY: Denies cough, cold, or chest congestion. Denies shortness of breath, difficulty breathing, or wheezing. GASTROINTESTINAL: Denies abdominal pain or distention. Denies nausea, vomiting, or diarrhea. Denies blood in vomitus, stools, or per rectum. Denies black, tarry stools. Denies constipation. GENITOURINARY: Denies difficulty urinating, painful urination, burning, frequency, blood in urine, or discharge. MUSCULOSKELETAL: Denies back or neck pain or stiffness. Denies joint pain or swelling. SKIN: reports left 3rd finger burn. Denies rash, lesions or sores. HEMATOLOGIC : Denies easy bruising or bleeding. LYMPHATIC: Denies swollen, enlarged glands. NEUROLOGICAL: Denies confusion or altered mental status. Denies passing out or loss of consciousness. Denies dizziness or lightheadedness. Denies headache. Denies weakness or paralysis or loss of use of either side. Denies problems wit h gait or speech. Denies sensory loss, numbness, or tingling. Denies seizures. PSYCHIATRIC: Denies anxiety or stress. Denies depression, suicidal ideation, or homicidal ideation. ALL OTHER SYSTEMS REVIEWED AND NEGATIVE. Dictation was performed using [employer] voice recognition software PHYSICAL EXAMINATION: GENERAL: Well-appearing, well-nourished and in no acute distress. HEAD: Atraumatic, normocephalic. EYES: Pupils equal round and reactive to light, extraocular movements intact, sclera anicteric, conjunctiva are normal. ENT: Nares patent, oropharynx clear without exudates. Moist mucous membranes. NECK: Normal range of motion, supple without lymphadenopathy LUNGS: Breath sounds clear to auscultation bilaterally and equal. No wheezes rales or rhonchi. HEART: Regular rate and rhythm without murmurs ABDOMEN: Soft, nontender, nondistended abdomen. No guarding, no rebound. No masses appreciated. Musculoskeletal: Normal range of motion, no pitting or edema. No cyanosis. NEUROLOGICAL: Cranial nerves grossly intact. Normal speech, normal gait. Normal sensory, motor exams PSYCH: Normal mood, normal affect. SKIN: Warm, Dry, normal turgor, no rashes or lesions noted. Pain to left 3rd phalange on volar aspect distal to MCJ to distal aspect just before the PIP, approx 2.5cm long. Burn is noncircumferential only on the volar aspect no pain to wrist with flexion, extension, inversion, eversion of wrist. digits in right and left with full aprom. Press Technician + 2 BUE equally. Snuffbox tenderness negative bilaterally. radial pulses + 2 BUE equally. Negative kanavels sign. No open wounds or drainage from wrist. No vascular compromise.No body crepitus or focal area of TTP. no pain with opposition, flexion, extension, abduction and adduction on __. Motor and sensory function of ulnar, radial, medial nerves intact bilaterally and equally. strength 5/5 in BUE equally. - REPRODUCTIVE Reproductive: DENIES: : Past Medical History - General Information source: Patient - Social History Smoking Status: Unknown if Ever Smoked Family History: Reviewed & Not Pertinent - Past Medical History Cardiac Medical History: Denies: Hx Coronary Artery Disease, Hx Heart Attack, Hx Hypertension Pulmonary Medical History: Denies: Hx Asthma, Hx Bronchitis, Hx COPD, Hx Pneumonia Neurological Medical History: Denies: Hx Cerebrovascular Accident, Hx Seizures Renal/ Medical History: Denies: Hx Peritoneal Dialysis GI Medical History: Reports: Hx Colonoscopy, Hx Endoscopy Musculoskeletal Medical History: Reports Hx Arthritis - HIPS Past Surgical History: Reports: Other - Bleb to lung - Immunizations Hx Diphtheria, Pertussis, Tetanus Vaccination: Yes Vertical Provider Document - CONSTITUTIONAL Agree With Documented VS: Yes Exam Limitations: No Limitations General Appearance: WD/WN - INFECTION CONTROL TRAVEL OUTSIDE OF THE [place] IN LAST 30 DAYS: No Course - Re-evaluation Re-evalutation: 08/18/20 13:25 Afebrile vital stable no distress. Nurses notes reviewed. Patient has a volar second-degree burn to his left third finger that is noncircumferential, head and neck surgeon are equal, patient has a below that opened, we did clean thoroughly, apply Shivani vadene and dress the wound. Patient has already been established with the burn center from previous olivas at [facility]. Patient states he will follow-up with his primary care provider tomorrow. Will prophylactically give patient Keflex 500 mg twice a day. Discussed with him that it is very important that he does follow-up with his primary care tomorrow for reevaluation. Patient did receive a tetanus 3 years ago. After performing a Medical Screening Examination, I estimate there is LOW risk for OPEN FRACTURE, COMPARTMENT SYNDROME, TENDON RUPTURE, ACUTE NEUROVASCULAR INJURY, or RETAINED FOREIGN BODY, thus I consider the discharge disposition reasonable. Also, there is no evidence or peritonitis, sepsis, or toxicity. I have reevaluated this patient multiple times and no significant life threatening changes are noted. The patient and I have discussed the diagnosis and risks, and we agree with discharging home with close follow-up with the understanding that symptoms and presentations can change. We also discussed returning to the Emergency Department immediately if new or worsening symptoms occur. We have discussed the symptoms which are most concerning (e.g., changing or worsening pain, fever, numbness, weakness, cool or painful digits) that necessitate immediate return. - Vital Signs Vital signs: Temp Pulse Resp BP Pulse Ox 98.4 F 72 16 107/63 100 08/18/20 12:49 08/18/20 12:49 08/18/20 12:49 08/18/20 12:49 08/18/20 12:49 Discharge - Discharge Clinical Impression: left 3rd finger partial thickness burn Condition: Stable Disposition: HOME, SELF-CARE Additional Instructions: Olivas The seriousness of a burn is not always obvious at first. Delayed tissue damage and secondary infection may occur despite proper treatment. Proper care is very important. A burn that is third-degree may need skin grafting. Most olivas, however, are simply protected with dressings until healed. Keep the burn clean. If the dressing gets wet, remove it and blot the wound dry, then apply a fresh dressing. Dressings should be changed at least once daily. Soaks to remove crusting are usually started in about two days. Olivas in certain areas require stretching to prevent disabling tightness. Your doctor will advise you about this. For pain control, you may frequently apply a hand towel that has been dipped in water with ice cubes. Do not apply ice directly to the burned areas. If any signs of infection occur (swelling, redness, increasing tenderness, red streaks, tender lumps in the armpit or groin above the burn, or fever), contact the doctor immediately. Apply a thick amount of cream to affected area twice a day for today, you do need to see your primary care tomorrow for reevaluation. Your tetanus is up-to-date so we did not need to update it today. Advised to start on prophylactic Keflex twice a day for 5 days. Wash with soap and water. If you have any worsening symptoms or increased pain please return to the emergency room immediately. Return immediately for any new or worsening symptoms. Follow up with primary care provider, call tomorrow to make followup appointment within the next 24 hours. BURN CENTER: [facility] [address] [place] [address] [id number] [place] [address] [place] Prescriptions: Cephalexin [Cephalexin 500 MG Tablet] 500 mg PO BID #10 tablet Referrals: CAYETANO SENIOR PA-C [Primary Care Provider] - Follow up tomorrow
== END 2020-08-18 13:27 | disposition home or self-care (01) ==
LOC: ER 12:17
DX: T23.222A Burn of second degree of single left finger (nail) except thumb, initial encounter (principal); X19.XXXA Contact with other heat and hot substances, initial encounter; Y99.0 Civilian activity done for income or pay
CPT/HCPCS: 99283; J3490

== ENCOUNTER 2020-09-15 07:34 | Emergency (ER) | payer OTHER, BC ==
--- NOTE | 2020-09-15 08:13 | RADIOLOGY REPORT (SQ) ---
EXAM DESCRIPTION: CHEST 2 VIEWS IMAGES COMPLETED DATE/TIME: 09/15/2020 8:02 am REASON FOR STUDY: chest pain COMPARISON: 05/21/2020 EXAM PARAMETERS: NUMBER OF VIEWS: two views TECHNIQUE: Digital Frontal and Lateral radiographic views of the chest acquired. RADIATION DOSE: NA LIMITATIONS: none FINDINGS: LUNGS AND PLEURA: No opacities, masses or pneumothorax. No pleural effusion. MEDIASTINUM AND HILAR STRUCTURES: No masses or contour abnormalities. HEART AND VASCULAR STRUCTURES: Heart normal size. No evidence for failure. BONES: No acute findings. HARDWARE: None in the chest. OTHER: No other significant finding. IMPRESSION: NO ACUTE RADIOGRAPHIC FINDING IN THE CHEST. TECHNICAL DOCUMENTATION: JOB ID: [id number] 2010 [employer]- All Rights Reserved Reading location - IP/workstation name: [email or web address]
[2020-09-15 08:22] LABS: ABSOLUTE EOSINOPHILS # (AUTO) 0.1 10^3/uL (0.0-0.6); ABSOLUTE LYMPHOCYTES (AUTO) 2.7 10^3/uL (0.5-4.7); ABSOLUTE MONOCYTES (AUTO) 0.4 10^3/uL (0.1-1.4); TOTAL CELLS COUNTED % (AUTO) 100 %
[2020-09-15 08:26] LABS: ABSOLUTE NEUT (AUTO) 2.1 10^3/uL (1.7-8.2); BASOPHILS % (AUTO) 0.6 % (0-2); EOSINOPHILS % (AUTO) 2.4 % (0-6); HEMATOCRIT 48.9 % (37.9-51.0); HEMOGLOBIN 17.6 g/dL (13.5-17.0); LYMPHOCYTES % (AUTO) 50.5 % (13-45); MEAN CORPUSCULAR HEMOGLOBIN 31.8 pg (27.0-33.4); MEAN CORPUSCULAR VOLUME 88 fl (80-97); MONOCYTES % (AUTO) 7.9 % (3-13); PLATELET COUNT 214 10^3/uL (150-450); RED BLOOD COUNT 5.54 10^6/uL (4.35-5.55); RED CELL DISTRIBUTION WIDTH 13.6 % (11.5-14.0); SEGMENTED NEUTROPHILS % (AUTO) 38.6 % (42-78); WHITE BLOOD COUNT 5.4 10^3/uL (4.0-10.5)
[2020-09-15 08:36] LABS: ALBUMIN 5.4 g/dL (3.5-5.0); ALKALINE PHOSPHATASE 70 U/L (38-126); ANION GAP 13 (5-19); ASPARTATE AMINO TRANSFERASE 35 U/L (17-59); BILIRUBIN,DIRECT 0.2 mg/dL (0.0-0.4); BILIRUBIN,TOTAL 1.2 mg/dL (0.2-1.3); BLOOD UREA NITROGEN 16 mg/dL (7-20); CALCIUM 10.6 mg/dL (8.4-10.2); CARBON DIOXIDE 26 mmol/L (22-30); CHLORIDE 102 mmol/L (98-107); CREATINE KINASE 76 U/L (55-170); GLUCOSE 106 mg/dL (75-110); POTASSIUM 4.5 mmol/L (3.6-5.0); TOTAL PROTEIN 8.8 g/dL (6.3-8.2)
[2020-09-15 08:47] LABS: CREATINE KINASE MB 0.63 ng/mL (<4.55)
[2020-09-15 08:52] LABS: TROPONIN I < 0.012 ng/mL
[2020-09-15] MEDS ORDERED: KETOROLAC TROMETHAMINE 60 MG/2 ML SDV IM ONE (10:31)
--- NOTE | 2020-09-15 10:38 | ER Document Report ---
ED General - General Chief Complaint: Chest Wall Pain Stated Complaint: CHEST PAIN Time Seen by Provider: 09/15/20 09:40 Primary Care Provider: CAYETANO SENIOR PA-C [Primary Care Provider] - Follow up as needed TRAVEL OUTSIDE OF THE [place] IN LAST 30 DAYS: No - HPI Notes: Chief complaint: Side chest pain History of present illness: 25-year-old male with previous history of spontaneous pneumothorax with chest tube placement and VATS procedure has been seen here several times subsequently for chest wall pain. Back with similar symptoms today. He reports that he had "a little cough" with no production of sputum last week. This is getting better. He thought he probably had a mild cold. No fever. No hemoptysis. He now reports an intermittent sharp catch in the left side of his chest aggravated by coughing or taking a deep breath. Patient has no known history of thromboembolic disease and no family history of thromboembolic disease. No recent trauma or immobilization. - Related Data Allergies/Adverse Reactions: No Known Allergies Allergy (Verified 09/15/20 07:36) Past Medical History - General Information source: Patient - Social History Smoking Status: Former Smoker Chew tobacco use (# tins/day): No Frequency of alcohol use: Rare Drug Abuse: Marijuana Family History: Reviewed & Not Pertinent Patient has homicidal ideation: No - Past Medical History Cardiac Medical History: Denies: Hx Coronary Artery Disease, Hx DVT, Hx Heart Attack, Hx Hypertension, Hx Pulmonary Embolism Pulmonary Medical History: Denies: Hx Asthma, Hx Bronchitis, Hx COPD, Hx Pneumonia Neurological Medical History: Denies: Hx Cerebrovascular Accident, Hx Seizures Endocrine Medical History: Denies: Hx Diabetes Mellitus Type 1, Hx Diabetes Mellitus Type 2 Renal/ Medical History: Denies: Hx Peritoneal Dialysis GI Medical History: Reports: Hx Colonoscopy, Hx Endoscopy Musculoskeletal Medical History: Reports Hx Arthritis - HIPS Past Surgical History: Reports: Other - Bleb to lung - Immunizations Hx Diphtheria, Pertussis, Tetanus Vaccination: Yes Review of Systems - Review of Systems Notes: Constitutional: Negative for fever. HENT: Negative for sore throat. Eyes: Negative for visual changes. Cardiovascular: As per HPI. Respiratory: As per HPI. Gastrointestinal: Negative for abdominal pain, vomiting or diarrhea. Genitourinary: Negative for dysuria. Musculoskeletal: Negative for back pain. Skin: Negative for rash. Neurological: Negative for headaches, weakness or numbness. 10 point ROS negative except as marked above and in HPI. Physical Exam - Vital signs Vitals: Temp Pulse Resp BP Pulse Ox 97.9 F 79 18 131/99 H 100 09/15/20 07:45 09/15/20 07:45 09/15/20 07:45 09/15/20 07:45 09/15/20 07:45 - Notes Notes: GENERAL: No patient of approximately stated age appearing in no acute distress. SKIN: Good turgor no rashes. HEAD: Normocephalic atraumatic. EYES: PERRLA. EOMI. Conjunctivae and sclerae clear. EARS: CANALS AND TMS CLEAR. NOSE: CLEAR. MOUTH: Moist mucosa. Good dentition. No stridor or edema. No drooling. NECK: Supple. No masses or thyromegaly. No adenopathy. Carotids 2+ without bruits. No JVD. BACK: Symmetrical without tenderness. CHEST: Respirations unlabored. Breath sounds clear and symmetrical. HEART: Regular rhythm. No murmur gallop or rub. ABDOMEN: Soft nontender without masses, organomegaly or rebound. Bowel sounds normally active. No bruits. GENITALIA: Deferred. EXTREMITIES: No edema. No calf tenderness. Cap refill less than 1.5 seconds. Dorsalis pedis and posterior tibial pulses 3+ and symmetrical. NEUROLOGICAL: GCS 15. Alert and oriented x3. Normal gait. Fluent speech. Cranial nerves II through XII intact. Sensorimotor and cerebellar normal. Normal tone. PSYCHIATRIC: Appropriate affect. Course - Re-evaluation Re-evalutation: 09/15/20 11:21 Troponin is normal. Twelve-lead EKG is normal. Chest x-ray is normal. D-dimer is normal. Patient has some tenderness of his anterior chest area on the left. He may have a pleuritis also based on his recent respiratory symptoms. I gave him an injection of IM Toradol with complete resolution of his discomfort. I feel he is very stable for outpatient follow-up with his primary care physician. I told him I will give him a 3-day work note and start him on some anti-inflammatory medication at home. Findings, clinical impression and plan of treatment have been discussed with patient/family. Understanding of current findings and recommendations has been acknowledged by them and there is agreement regarding disposition and follow-up. - Vital Signs Vital signs: Temp Pulse Resp BP Pulse Ox 97.9 F 79 18 131/99 H 100 09/15/20 07:45 09/15/20 07:45 09/15/20 07:45 09/15/20 07:45 09/15/20 10:31 - Laboratory Result Diagrams: 09/15/20 08:05 09/15/20 08:05 Laboratory results interpreted by me: 09/15/20 09/15/20 08:05 08:05 Hgb 17.6 H Lymph % (Auto) 50.5 H Seg Neutrophils % 38.6 L Calcium 10.6 H ALT 57 H Total Protein 8.8 H Albumin 5.4 H Discharge - Discharge Clinical Impression: Pleurisy Condition: Stable Disposition: HOME, SELF-CARE Additional Instructions: Pleurisy Your chest pain has been diagnosed as pleuritis (pleurisy). This is an inflammation of the surface of the lung tissue. It can be caused by a virus or, occasionally, old scar tissue. It is painful but, for the most part, not a serious problem. This pain is usually made worse by deep breathing, coughing, or sudden movements of the upper body or arms. The treatment is relief of symptoms. It includes rest, antiinflammatory medication, and pain medicine. Resolution of the pain is usually rapid once antiinflammatory medication is started. Warning signs of a more serious problem include: a fever, shortness of breath, pain that radiates to your jaw, shoulders or arms, or coughing up bloody sputum. If any of these symptoms occur, call the physician at once. You will be provided a note for the next 3 days for work. Prescriptions: Indomethacin 50 mg PO TID 10 Days #30 capsule Forms: Return to Work Referrals: CAYETANO SENIOR PA-C [Primary Care Provider] - Follow up as needed
[2020-09-15 12:18] VITALS: BP 120/79
--- NOTE | 2020-09-15 16:47 | EKG REPORT ---
SEVERITY:- ABNORMAL ECG - SINUS RHYTHM MULTIPLE ATRIAL PREMATURE COMPLEXES : Confirmed by: Sajan Leonardo MD 15-Sep-2020 16:46:48
== END 2020-09-15 12:18 | disposition home or self-care (01) ==
LOC: ER 07:34
DX: R09.1 Pleurisy (principal); R07.89 Other chest pain
CPT/HCPCS: 93005; 99285; 96372; 36415; 82553; 82550; 85025; 80053; 84484; 85379; 71046; 93010; J1885

== ENCOUNTER 2020-10-28 23:02 | Emergency (ER) | payer OTHER, BC ==
[2020-10-28] MEDS ORDERED: LIDOCAINE 1% INJ-PF (10 MG/ML) 30 ML SDV INJ ONE (23:43)
[2020-10-28 23:44] VITALS: BP 115/54
--- NOTE | 2020-10-28 23:44 | ER Document Report ---
ED Hand/Wrist Injury - General Chief Complaint: Laceration Stated Complaint: HAND INJURY Time Seen by Provider: 10/28/20 23:40 Primary Care Provider: CAYETANO SENIOR PA-C [Primary Care Provider] - Follow up as needed Notes: CHIEF COMPLAINT: Right hand laceration HPI: 25-year-old male presenting to the emergency department complaining of right hand laceration. Patient was cleaning dishes and cut himself on knife. States his tetanus is up-to-date. Denies numbness or tingling in the fingertips. ROS: See HPI - all other systems were reviewed and are otherwise negative Constitutional: no fever Integumentary: Positive laceration Allergy: no hives Musculoskeletal: + extremity pain or swelling Neurological: no numbness/tingling, no weakness MEDICATIONS: I agree with the patient medications as charted by the RN. ALLERGIES: I agree with the allergies as charted by the RN. PAST MEDICAL HISTORY/PAST SURGICAL HISTORY: Reviewed and agree as charted by RN. SOCIAL HISTORY: Reviewed and agree as charted by RN. FAMILY HISTORY: No significant familial comorbid conditions directly related to patient complaint EXAM: Reviewed vital signs as charted by RN. CONSTITUTIONAL: Alert and oriented and responds appropriately to questions. Well-appearing; well-nourished HEAD: Normocephalic; atraumatic EYES: Conjunctivae clear, sclerae non-icteric ENT: normal nose; no rhinorrhea; moist mucous membranes NECK: Supple without meningismus CARD: symmetric distal pulses RESP: Normal chest excursion without splinting or tachypnea ABD/GI: non-distended BACK: The back appears normal EXT: Normal ROM in all joints; no cyanosis, no effusions, no edema SKIN: Normal color for age and race; warm; dry; good turgor; there is a 1 cm laceration on the hypothenar surface of the right hand. No visible tendon injury. Full flexion extension of the fingers of the right hand as well as abduction of the thumb. Sensation is intact in the distal fingertips to touch with capillary refill less than 3 seconds NEURO: Moves all extremities equally; Motor and sensory function intact PSYCH: The patient's mood and manner are appropriate. Grooming and personal hygiene are appropriate. MDM: 25-year-old male with laceration to the right hand. We will plan to suture close the area given the location TRAVEL OUTSIDE OF THE [place] IN LAST 30 DAYS: No - Related Data Allergies/Adverse Reactions: No Known Allergies Allergy (Verified 09/15/20 07:36) Past Medical History - Social History Smoking Status: Never Smoker Family History: Reviewed & Not Pertinent - Past Medical History Cardiac Medical History: Denies: Hx Coronary Artery Disease, Hx DVT, Hx Heart Attack, Hx Hypertension, Hx Pulmonary Embolism Pulmonary Medical History: Denies: Hx Asthma, Hx Bronchitis, Hx COPD, Hx Pneumonia Neurological Medical History: Denies: Hx Cerebrovascular Accident, Hx Seizures Endocrine Medical History: Denies: Hx Diabetes Mellitus Type 1, Hx Diabetes Me llitus Type 2 Renal/ Medical History: Denies: Hx Peritoneal Dialysis GI Medical History: Reports: Hx Colonoscopy, Hx Endoscopy Musculoskeletal Medical History: Reports Hx Arthritis - HIPS Past Surgical History: Reports: Other - Bleb to lung - Immunizations Hx Diphtheria, Pertussis, Tetanus Vaccination: Yes Physical Exam - Vital signs Vitals: Temp Pulse Resp BP Pulse Ox 98.2 F 85 18 115/54 L 99 10/28/20 23:35 10/28/20 23:35 10/28/20 23:35 10/28/20 23:35 10/28/20 23:35 Course - Vital Signs Vital signs: Temp Pulse Resp BP Pulse Ox 98.2 F 85 18 115/54 L 99 10/28/20 23:35 10/28/20 23:35 10/28/20 23:35 10/28/20 23:35 10/28/20 23:35 - Laboratory Results Critical Laboratory Results Reviewed: No Critical Results - Radiology Results Critical Radiology Results Reviewed: No Critical Results Procedures - Laceration/Wound Repair Right Hand Time completed: 00:19 Wound length (cm): 1.5 Wound's Depth, Shape: Superficial, Linear Laceration pre-procedure: Sterile PPE donned, Sterile drapes applied, Shur-Clens applied, Other - slaine Anesthetic type: 1% Lidocaine Volume Anesthetic (mLs): 1 Wound explored: Clean, No foreign body removed Irrigated w/ Saline (mLs): 250 Wound Repaired With: Sutures Suture Size/Type: 4:0, Prolene Layer Closure?: No Post-procedure wound care: Sterile dressing applied Post-procedure NV exam normal: Yes Complications: No Discharge - Discharge Clinical Impression: Laceration of hand, right Qualifiers: Encounter type: initial encounter Foreign body presence: without foreign body Qualified Code(s): S61.411A - Laceration without foreign body of right hand, initial encounter Condition: Stable Disposition: HOME, SELF-CARE Instructions: Laceration Care ([facility]), Soap Cleansing ([facility]) Additional Instructions: Motrin or Tylenol for pain. Sutures out as directed, 10 days Keep the area as clean and dry as possible applying antibiotic ointment and dressing daily. Return for any redness, discharge, swelling or signs of infection. Referrals: CAYETANO SENIOR PA-C [Primary Care Provider] - Follow up as needed
== END 2020-10-29 01:01 | disposition home or self-care (01) ==
LOC: ER 23:02
DX: S61.411A Laceration without foreign body of right hand, initial encounter (principal); W26.0XXA Contact with knife, initial encounter; Y93.G1 Activity, food preparation and clean up
CPT/HCPCS: 99282; 12001; J3490